=== PATIENT | female | born 1940 | race Hispanic/Latino ===

== ENCOUNTER → 2017-12-22 | Outpatient (CLI) | payer MEDICARE ==
[~2017-12-22] MED LIST: ACET325T51 PO; CARB25DR OS; CETI10TA86 PO; COMB5OS OS; DONE10TA43 PO; ESOM40CA PO; FURO40SO PO; GLIM2TAB3 PO; LANO3.5O OS; METO50TA18 PO; MOME17N NS; POTA-81 PO; PRAV10TA39 PO; PRED5DRO17 OS; SITA50TA PO; WARF-67 PO; WARF1TAB83 PO
== END | disposition home or self-care (01) ==
LOC: OIH 13:40
PROVIDERS: ATTEND Internal Medicine Cardiovascular Disease
DX: I11.0 Hypertensive heart disease with heart failure (principal); I50.42 Chronic combined systolic (congestive) and diastolic (congestive) heart failure; I48.91 Unspecified atrial fibrillation; I25.10 Atherosclerotic heart disease of native coronary artery without angina pectoris
CPT/HCPCS: 71046

== ENCOUNTER → 2018-11-16 | Outpatient (CLI) | payer MEDICARE | END | disposition home or self-care (01) | LOC: OIH 15:06 | PROVIDERS: ATTEND Internal Medicine | DX: S63.91XA Sprain of unspecified part of right wrist and hand, initial encounter (principal) | CPT/HCPCS: 73120 ==

== ENCOUNTER 2019-10-22 09:25 | Observation (INO) | payer MEDICARE ==
[~2019-10-22] VITALS: Ht 152.4 cm; Wt 59.0 kg
[~2019-10-22 09:25] MED LIST changes: -GLIM2TAB3 PO; +GLIM2TAB30 PO
[2019-10-22 10:04] LABS: BASOPHILS % (AUTO) 0.4 % (0.0-5.0); EOSINOPHILS % (AUTO) 1.4 % (0.0-8.0); HEMATOCRIT 42.5 % (36-48); LYMPHOCYTES % (AUTO) 15.1 % (21.0-51.0); MEAN CORPUSCULAR HEMOGLOBIN 32.5 pg (27.0-33.0); MEAN CORPUSCULAR HGB CONC 33.4 g/dL (32.0-36.0); MEAN CORPUSCULAR VOLUME 97.3 fL (79-99); MONOCYTES % (AUTO) 7.4 % (3.0-13.0); NEUTROPHILS % (AUTO) 75.5 % (40.0-77.0); PLATELET COUNT (AUTO) 226 K/uL (130-400); RED BLOOD CELL COUNT(AUTO) 4.37 MIL/uL (4.00-5.50); RED CELL DISTRIBUTION WIDTH 12.5 % (11.0-15.5); WHITE BLOOD COUNT (AUTO) 8.4 K/uL (4.8-10.8)
[2019-10-22 10:15] LABS: CREATININE 0.9 mg/dL (0.5-1.5); POTASSIUM 3.9 mmol/L (3.5-5.1)
[2019-10-22 10:17] LABS: INR 1.04 (0.85-1.15); PARTIAL THROMBOPLASTIN TIME 30.8 SEC (26.3-35.5); PROTHROMBIN TIME 10.9 SEC (9.6-11.6)
[2019-10-22 10:19] LABS: ALBUMIN 3.2 g/dL (3.5-5.0); BILIRUBIN,TOTAL 0.7 mg/dL (0.2-1.0)
[2019-10-22 11:41] LABS: APPEARANCE,URINE Clear (CLEAR); BILIRUBIN,URINE Negative (NEGATIVE); COLOR,URINE Yellow (YELLOW); GLUCOSE, URINE (UA) 500 mg/dL (NEGATIVE); KETONES,URINE Negative (NEGATIVE); LEUKOCYTE ESTERASE ,URINE Negative (NEGATIVE); NITRATE,URINE Negative (NEGATIVE); OCCULT BLOOD,URINE Negative (NEGATIVE); PH,URINE 5.5 (5.0-8.0); PROTEIN,URINE Negative (NEGATIVE)
[2019-10-22 11:55] LABS: BACTERIA,URINE None Seen /HPF (None Seen); RBC,URINE None Seen /HPF (0-1); WBC,URINE None Seen /HPF (0-1)
[2019-10-22 14:31] VITALS: BP 180/70
[2019-10-22 16:36] VITALS: BP 136/69
--- NOTE | 2019-10-22 18:20 | NUR ---
INITIAL PATIENT SEEN IN ROOM W MULTIPLE FAMILY MEMBERS- PT IS DEPENDENT, W/C BOUND, LIVES W/ DAUGHTER FERN WHO IS HER PROVIDER 40/HR WEEK AND WILL PROVIDE TRANSPORT - FAMILY WANTS THERAPY AT HOME, ADVISED FAMILY THAT REQUIRED APPT WITH PMD TO SET UP. DCP IS HOME. Addendum: 10/24/19 at 0827 by JANA HAMPTON RN CM Amended: Links added.
[2019-10-22] MEDS ORDERED: FURO40TA5 PO (18:33)
[2019-10-22] MEDS ORDERED: APIX2.5T PO (18:35)
[2019-10-22] MEDS ORDERED: PANT40TA25 PO (18:38)
[2019-10-22 20:00] VITALS: BP 130/57
--- NOTE | 2019-10-22 20:45 | NUR ---
PHYSICAL ASSESSMENT DONE CHARTED ON WRONG TIME. Patient awake in bed no complaints of pain, visitors at bedside. Assessment done no abnormalities noted, lung sounds clear bilaterally, bowels sounds active in 4 quadrants. with Saline locked on her right antecubital patent. Plan of care discussed with patient verbalizes understanding.
[2019-10-22] MEDS: D5W-1/2 NS/20MEQ KCL 1,000 ML IV SCH (21:13)
--- NOTE | 2019-10-22 22:40 | NUR ---
COMMUNICATION: Dr. HUTSON CALLED BY TELEPHONE informed that relatives were asking if she can take her home medication with orders to continue home medication. Patient took her home medication as scheduled at 2245 the Macleod 5 mg 1tab p.o., metoprolol 50 mg p.o., pravastatin 10 mg 1 tab p.o. and eliquis 2.5 mg p.o.
[2019-10-22 23:52] VITALS: BP 135/56
[2019-10-23] MEDS: D5W-1/2 NS/20MEQ KCL 1,000 ML IV SCH (01:20)
[2019-10-23 04:09] VITALS: BP 134/53
--- NOTE | 2019-10-23 06:45 | NUR ---
Dr. Diop at bedside; Dr. Diop check Patient and talk to patient his plan of care. He give order that patient can go home. May resume her Blood sugar medication tomorrow not today. Patient verbalizes understanding.
[2019-10-23 07:00] LABS: BASOPHILS % (AUTO) 0.6 % (0.0-5.0); EOSINOPHILS % (AUTO) 2.7 % (0.0-8.0); HEMATOCRIT 36.7 % (36-48); LYMPHOCYTES % (AUTO) 29.3 % (21.0-51.0); MEAN CORPUSCULAR HEMOGLOBIN 32.4 pg (27.0-33.0); MEAN CORPUSCULAR HGB CONC 33.2 g/dL (32.0-36.0); MEAN CORPUSCULAR VOLUME 97.3 fL (79-99); MONOCYTES % (AUTO) 7.9 % (3.0-13.0); NEUTROPHILS % (AUTO) 59.2 % (40.0-77.0); PLATELET COUNT (AUTO) 211 K/uL (130-400); RED BLOOD CELL COUNT(AUTO) 3.77 MIL/uL (4.00-5.50); RED CELL DISTRIBUTION WIDTH 12.7 % (11.0-15.5); WHITE BLOOD COUNT (AUTO) 6.9 K/uL (4.8-10.8)
[2019-10-23 07:08] LABS: CREATININE 0.9 mg/dL (0.5-1.5); MAGNESIUM 2.1 mg/dL (1.80-2.40); POTASSIUM 3.8 mmol/L (3.5-5.1)
[2019-10-23 08:02] VITALS: BP 127/54
--- NOTE | 2019-10-23 08:30 | NUR ---
note AAOX3. DENIES PAIN OR OTHER DISCOMFORT AT THIS TIME. BBS CLEAR TO ALL LOBES NO N/V. BLOOD SUGARS HAVE REMAINED ABOVE 100. DR HUTSON MADE ROUNDS EARLIER AND HE HAS WRITTEN FOR PATIENT DISCHARGE TO FOLLOW UP WITH DR MATHEWS, HER PCP, IN 1-3 DAYS BUT HOLD DIABETIC MEDS FOR NOW.
[2019-10-23] MEDS ORDERED: GLIMEPIRIDE 2 MG TABLET PO SCH (09:00)
[2019-10-23] MEDS ORDERED: PREDNISOLONE ACETATE 1% 5ML DROPS.SUSP OS SCH (09:00)
[2019-10-23] MEDS ORDERED: CETIRIZINE HCL 5 MG TABLET PO PRN (09:00)
[2019-10-23] MEDS ORDERED: FUROSEMIDE 40 MG TABLET PO SCH (09:00)
[2019-10-23] MEDS ORDERED: LINAGLIPTIN 5 MG TABLET PO SCH (09:00)
[2019-10-23] MEDS ORDERED: TIMOLOL MALEATE 0.5% 5 ML BOTTLE OS SCH (09:00)
[2019-10-23] MEDS ORDERED: APIXABAN 2.5 MG TABLET PO SCH (09:00)
[2019-10-23] MEDS ORDERED: METOPROLOL TARTRATE 50 MG TAB PO SCH (09:00)
[2019-10-23] MEDS ORDERED: POTASSIUM CHLORIDE 20 MEQ ERTAB PO SCH (09:00)
[2019-10-23] MEDS ORDERED: FLUTICASONE PROPIONATE 50MCG/SPRAY 16 GM BOTTLE EN SCH (09:00)
[2019-10-23] MEDS ORDERED: PANTOPRAZOLE SODIUM 40 MG TABLET.DR PO SCH (09:00)
[2019-10-23] MEDS ORDERED: BRIMONIDINE TARTRATE 0.2% 5 ML BOTTLE OS SCH (09:00)
[2019-10-23] MEDS ORDERED: ATORVASTATIN CALCIUM 10 MG TABLET PO SCH (21:00)
[2019-10-23] MEDS ORDERED: ARTIFICIAL TEARS 3.5 GM OINTMENT OS SCH (21:00)
[2019-10-23] MEDS ORDERED: DONEPEZIL HCL 5 MG TAB PO SCH (21:00)
== END 2019-10-23 15:50 | disposition home or self-care (01) ==
LOC: EDH 09:25 → EDHIP 11:35 → 4CH 14:08
PROVIDERS: ADMIT Family Medicine; ATTEND Family Medicine
DX: E11.649 Type 2 diabetes mellitus with hypoglycemia without coma (principal); I10 Essential (primary) hypertension; R41.82 Altered mental status, unspecified; Z79.01 Long term (current) use of anticoagulants
CPT/HCPCS: 36415 ×2; 70450; 71045; 80048; 80053; 81001; 82550; 82948 ×8; 83735; 84484; 85025 ×2; 85610; 85730; 87077; 87088; 87186; 93005; 96374; 99284; G0378 ×14; J3480 ×2; J7510

== ENCOUNTER → 2019-11-01 | Outpatient (CLI) | payer MEDICARE ==
[~2019-11-01] MED LIST changes: -ACET325T51 PO; +APIX2.5T PO; -CARB25DR OS; -ESOM40CA PO; -FURO40SO PO; +FURO40TA5 PO; -GLIM2TAB30 PO; +PANT40TA25 PO; -SITA50TA PO; -WARF-67 PO; -WARF1TAB83 PO
--- NOTE | 2019-11-01 12:38 | NUR ---
MBSS COMPLETED. -S/S OF ASPIRATION. RECOMMEND REGULAR TEXTURE, THIN LIQUIDS; PILLS WHOLE WITH LIQUIDS. Addendum: 11/01/19 at 1239 by JOSH GUEVARA, [facility] Amended: Links added.
== END | disposition home or self-care (01) ==
LOC: RAH 09:50
PROVIDERS: ATTEND Internal Medicine
DX: R13.10 Dysphagia, unspecified (principal)
CPT/HCPCS: 74230; 92611

== ENCOUNTER → 2020-04-02 | Outpatient (CLI) | payer MEDICARE | END | disposition home or self-care (01) | LOC: OIH 11:31 | PROVIDERS: ATTEND Internal Medicine | DX: R91.8 Other nonspecific abnormal finding of lung field (principal); M47.814 Spondylosis without myelopathy or radiculopathy, thoracic region; I25.10 Atherosclerotic heart disease of native coronary artery without angina pectoris ==

== ENCOUNTER → 2020-07-16 | Outpatient (CLI) | payer MEDICARE ==
[~2020-07-16] MED LIST changes: -PANT40TA25 PO; +PANT40TA54 PO
== END | disposition home or self-care (01) ==
LOC: OIH 11:16
PROVIDERS: ATTEND Internal Medicine Cardiovascular Disease
DX: I50.32 Chronic diastolic (congestive) heart failure (principal); Z95.0 Presence of cardiac pacemaker
CPT/HCPCS: 71046

== ENCOUNTER → 2020-08-21 | Outpatient (CLI) | payer MEDICARE | END | disposition home or self-care (01) | LOC: RAH 08:16 | PROVIDERS: ATTEND Internal Medicine Cardiovascular Disease | DX: I48.20 Chronic atrial fibrillation, unspecified (principal); I50.23 Acute on chronic systolic (congestive) heart failure; I50.9 Heart failure, unspecified | CPT/HCPCS: 71046; 93306; 93356 ==

== ENCOUNTER → 2021-03-01 | Outpatient (CLI) | payer MEDICARE | END | disposition home or self-care (01) | LOC: RAH 15:04 | PROVIDERS: ATTEND Internal Medicine Cardiovascular Disease | DX: R06.02 Shortness of breath (principal); I51.7 Cardiomegaly; Z95.0 Presence of cardiac pacemaker | CPT/HCPCS: 71046 ==

== ENCOUNTER → 2021-04-10 | Outpatient (CLI) | payer MEDICARE | END | disposition home or self-care (01) | LOC: RAH 08:50 | PROVIDERS: ATTEND Internal Medicine Cardiovascular Disease | DX: R91.8 Other nonspecific abnormal finding of lung field (principal); M81.0 Age-related osteoporosis without current pathological fracture | CPT/HCPCS: 71046 ==